=== PATIENT | female | born 1960 | race Caucasian/White ===

== ENCOUNTER 2023-09-08 13:29 | Outpatient (AMB) | payer OTHER, SELFPAY ==
--- NOTE | 2023-09-08 13:38 | A.OFFVIS_ITS ---
Vital Signs 09/08/23 13:47 Height 5 ft 6.5 in Weight 179 lb BMI 28.5 Intake Visit Reasons: RAT EXTERMINATOR-Jose Chronic Hand Pain Intake Note: Verónica is a 63 yo right hand dominant female who presents today with her as a new patient for evaluation of bilateral hand pain that began approximately 3 years ago. Reports numbness, burning, and tingling that comes and goes. There is also locking on fingers 3rd, 4th, and 5th digits. She reports bumpy thinggies on multiple fingers that have grown in size and have become painful. Denies prior surgery or injuries to the hands. No EMG. Patient has a bad experience with EMG's (back). Patient is taking Tylenol for pain with no relief. Patient has not done OT/PT. Patient states she has tried braces with no relief of symptoms. Accompanied by: Spouse Allergies oxycodone Adverse Reaction (Unknown, Verified 09/08/23 13:43) Vomiting Iywiewd-EAT-JrW Reductase Inhibitor Adverse Reaction (Unknown, Verified 09/08/23 13:43) Muscle Pain metformin Adverse Reaction (Verified 09/08/23 13:43) Diarrhea HPI HPI RAT EXTERMINATOR-Jose Chronic Hand Pain: Details: Patient is a 63-year-old female with past medical history is significant for spinal stenosis who presents for evaluation of bilateral burning hand pain, ongoing for approximately 2-3 years. The patient reports that she feels that this pain began with chiropractic adjustment at approximately that time. She reports that she has been to several doctors in order to get this problem looked at, and she finally was able to get referrals to both the hand surgeon and to a radiation control specialist for evaluation. Patient reports she has never had any numbness and tingling in her hands. Patient also reports that this pain temporarily improves with massage about the cervical spine. The patient also reports that she has several ?bumps? on the volar aspect of the PIP joints of several bilateral fingers, as well as feeling as if her fingers get stiff in extension occasionally. The patient reports that these bumps on her fingers have gotten larger over the last year or so. Patient has no other acute complaints or concerns at this time. [facility] Social History (Updated 09/08/23 @ 13:47 by JL Espino) Current occupational status: unemployed Current occupation: rt handed Review of Systems Const All systems reviewed & are unremarkable except as noted in HPI and below Physical Exam Vital Signs: BMI result Body Mass Index 28.5 Extrem Other: Patient is alert, oriented, and in no acute distress. Neuro: Median, ulnar, radial nerves motor and sensory intact and sensation is normal to the tips of all digits. Vascular: Cap refill brisk Pain: Patient reports no tenderness to palpation of bilateral hands ROM: Range of motion of bilateral hands full and intact at this time Able to make a closed fist bilaterally Good finger cross bilaterally Skin: No lacerations or abrasions. General: No ecchymosis, erythema, or evidence of infection. Of note, there is a small bump present at the level of the volar MCP joint in the left index finger, right index finger, and right small finger. Nontender to palpation. Negative Tinel's at the wrist bilaterally Psych: Appears grossly normal Affect normal Attitude cooperative Assessment & Plan Assessment & Plan (1) Bilateral hand pain: Code(s): M79.641 - Pain in right hand; M79.642 - Pain in left hand Category: Medical (2) Ganglion cyst of both hands: Code(s): M67.441 - Ganglion, right hand; M67.442 - Ganglion, left hand Category: Medical Plan 1. Bilateral hand pain At this time, due to lack of numbness and tingling, bilateral nature of symptoms, history of spinal stenosis, and relief with cervical spine massage, I suspect that this bilateral symmetric burning hand pain is likely cervicogenic in origin Patient is advised to keep her appointment with her radiation control specialist, and should discuss this pain with him at this time Index of suspicion for carpal tunnel syndrome or cubital tunnel syndrome extremely low due to lack of numbness and tingling in the hand 2. Ganglion cysts of the left index finger, right index finger, right small finger Patient is informed that these masses or most likely ganglion cysts based on position and physical exam findings Patient is offered aspiration of most bothersome cyst at this time, but declines due to fear of exacerbation of pain Patient is informed of the procedure and what would go on, but still continues to decline Patient will follow-up with us if she does desire to seek treatment for these cysts at another time Patient is also offered occupational hand therapy to help with hand stiffness, but also declines and states she will work on range of motion at home Patient will follow-up p.r.n. with any acute concerns Coding Level of Care Code New Pt Level 3 (62711) Diagnoses Bilateral hand pain M79.641; M79.642 Ganglion cyst of both hands M67.441; M67.442
[2023-09-08 13:47] VITALS: BMI 28.5
== END 2023-09-08 14:21 | disposition home or self-care (01) ==
DX: M79.641 Pain in right hand (principal); M79.642 Pain in left hand; M67.441 Ganglion, right hand; M67.442 Ganglion, left hand
CPT/HCPCS: 99203

== ENCOUNTER 2024-03-18 09:45 | Outpatient (AMB) | payer OTHER, SELFPAY ==
--- NOTE | 2024-03-18 09:46 | A.SPINEOV_ITS ---
Vital Signs 03/18/24 09:57 Height 5 ft 6 in Weight 182 lb BMI 29.4 Intake Visit Reasons: Neck pain Intake Note: Mrs. Yeager is here today c/o neck pain that radiates down her arms. Laboratory Apparatus Glass Blower Required: No Allergies oxycodone Adverse Reaction (Unknown, Verified 09/08/23 13:43) Vomiting Tkjflzh-KHE-NjE Reductase Inhibitor Adverse Reaction (Unknown, Verified 03/18/24 09:57) Muscle Pain metformin Adverse Reaction (Verified 03/18/24 09:57) Diarrhea Physical Exam Vital Signs: BMI result Body Mass Index 29.4 Assessment & Plan Assessment & Plan (1) Bilateral hand pain: Code(s): M79.641 - Pain in right hand; M79.642 - Pain in left hand Category: Medical (2) Numbness of feet: Code(s): R20.0 - Anesthesia of skin Category: Medical Plan Dear Anatoly, Thank you for referring Mrs Yeager to our office today. She is a very nice 63-year-old diabetic, presents to the office today for evaluation of a multiyear history of 2 separate issues. The 1st issue is a burning pain in her hands that encompasses her whole hand bilaterally. Occasionally she will have numbness but the real symptom that presents here is burning pain in her hands at all times. There may be an associated weakness but no loss of fine motor movements, dexterity, graphesthesia etc.. She reports some gait imbalance primarily due to issues with her eyes having lack of visual acuity. No specific loss of balance. She was diagnosed with polyneuropathy years ago. More recently however, she was diagnosed with cervical stenosis at C6-7 and is here today for evaluation of that. She denies any pain or numbness radiating down her arms. Again no overt myelopathic symptoms. Second issue is that she has had chronic back pain for years which generally she has dealt with using physical therapy another nonsurgical measures. She has had a multiyear history of numbness from about her mid calf down to her whole foot. Denies any radiating pains down her legs, claudicating leg symptoms etc.. She was diagnosed with lumbar stenosis at L4-5 recently on an MRI as well and she would like to talk about that. PMH: She is a rather complicated medical history, she has for many years had trouble with her eyes that have been elusive to diagnosis. 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 Unfortunately these things have left her with disturbed vision and a feeling of a greenish over her right eye. More recently she lost complete vision in her left eye rather abruptly. It is very slowly coming back. She has a history of atrial fibrillation, on Eliquis she has a pacemaker. She had a heart attack about 5 years ago had 2 stents placed in the LAD, is followed by yearly. She has been stable from that standpoint without symptoms. She has a history of diabetes in her A1c has always been very well controlled generally less than 7 over the course of many years. Recently had issues with her feet where she has had fractures of her left foot with 2 subsequent repairs, the 2nd 1 was due to loosening of 1 of the screws. The injury to the right ankle was a tear of the Achilles and the peroneus muscle. Denies any issues with her lungs, liver, kidneys, blood clots, major abdominal surgeries. She did have a cholecystectomy in 2 C sections however. Social hx: She quit smoking many years ago, does not drink or smoke marijuana use any recreational drugs Medications: Baby aspirin, Eliquis, Jardiance, spironolactone, torsemide, Lantus, Trulicity, fish oil, brimonidine, dorzolamide, vitamin-D, oxycodone, methocarbamol Allergies: Statins metformin Physical exam: Awake alert oriented no acute distress she is able stand up on her own and walk however she is in a walking boot so she is little unsteady. Her vision is not great so she does have to use the hurst for guidance. She is not overtly unstable with Romberg testing. She is able to get up on the examining table on her own. She has mild loss of strength in the hands, otherwise rest of her motor examination is normal full strength. Reflexes diffusely absent no clonus in her right ankle. Could not test the left ankle secondary to the boot. No Levine's. Tinel's negative. Imaging review: Cervical MRI, thoracic and lumbar done at [facility] in January of 2024. The cervical spine shows degenerative disc disease at C5-6 and C6-7 with moderate to severe stenosis at C6-7. There is no cord signal change seen. Here the thoracic spine shows just some very mild degenerative disc disease with no overt cord compression. Lumbar spine shows some facet hypertrophy at L3-4, she has degenerative disc disease causing severe central canal stenosis. Impression: 63-year-old diabetic female, history of polyneuropathy diagnosed a number of years ago, followed by a neurologist in [facility], presents with symptoms of burning hand pain encompassing the whole hand with some mild hand weakness. No overt myelopathic symptoms reported. Also complains of numbness from about her mid calf down to her whole foot on both feet. These things have been going on for years. She has had an elusive diagnosis for exactly why she has polyneuropathy given that her A1c so well controlled on her diabetes. The symptoms have been getting progressively worse. Her MRIs do show stenosis at C6-7 and L4-5. However, she has none of the classic myelopathic symptoms such as numbness, pain radiating down the arms with gait instability etc.. No loss of fine motor movements. Additionally with the stenosis in her low back, she has no claudicating leg pains to report. Her symptoms are present at rest and do not necessarily get worse when she walks. They are present all the time. It is well-known that these findings on the MRI can be seen in patients who have no symptoms and can be incidental. I will have to review this with Dr. Walter to see if he has any other thoughts on the matter. I am going to repeat the EMG of her upper extremities to see if there has been any progression of her polyneuropathy. Also, I will do the same on the right lower extremity to see if there has been progression there as well. If there has been significant worsening of the polyneuropathy then I think we can explain her symptoms based on that. If not, maybe we can point back to the findings on the MRIs with a little more confidence. I would like to see her back once the EMG is a completed and can review everything with Dr. Walter. Thank you for allowing us to care for your patient. The total time spent with this visit with this patient was 60 minutes reviewing history, physical exam, cervical, thoracic and lumbar imaging review, and implementation of treatment plan or further diagnostic testing Milind Walter MD,PhD [facility] Orders: Orders NE electromyogram (EMG) Today M79.641 - Pain in right hand, M79.642 - Pain in left hand NE electromyogram (EMG) Today R20.0 - Anesthesia of skin Coding Level of Care Code New Pt Level 5 (23087) Diagnoses Bilateral hand pain M79.641; M79.642 Numbness of feet R20.0
[2024-03-18 09:57] VITALS: BMI 29.4
--- OUTSIDE RECORDS SUMMARY | 2024-03-18 10:29 | XMS_ITS | Encounter Summary ---
Author Organization [facility] Address [address] [place] [address] Care Team Providers Care Jewelry Cutter Name Role Phone Santhosh Merrill DO Primary Care Provider [phone] Reason for Visit * Reason Onset Date Comments Med Refill 03/08/2024 Torsemide Encounter Details Date Type Department Care Team ([facility] Contact Info) Description 03/08/2024 Telephone [facility] [address] [place] [address] Heladio Kruger MD [address] [place] [address] [address]IVE [address] [place], [place] [id number] Med Refill (Torsemide) Social History Tobacco Use Types Packs/Day Years Used Date Smoking Tobacco: Former Cigarettes Q uit: 02/06/2017 Smokeless Tobacco: Never Alcohol Use Standard Drinks/Week Comments Yes 0 (1 standard drink = 0.6 oz pur e alcohol) Comments Unknown Sex and Gender Information Value Date Recorded Sex Assigned at Not on file Legal Sex Female 12:00 AM EST Gender Identity Not on file Sexual Orientation Not on file documented as of this encounter Ordered Prescriptions Prescription Sig Dispense Quantity Refills Last Filled Start Date End Date torsemide (DEMADEX) 20 mg tablet Take 2 tablets (40 mg total) by mouth 1 (one) time each day. 180 tablet 2 03/08/2024 documented in this encounter Progress Notes * Tracy Mckeon RN - 03/08/2024 12:21 PM EST [facility] 09/26/23 Labs 08/23/23 in [facility] Torsemide refills sent * Kari Contreras - 03/08/2024 12:05 PM EST Patient needs a refill for Torsemide 20 mg 2 tabs daily. Send to [facility] in [place] for 90 day supply. documented in this encounter Plan of Treatment Upcoming Encounters Date Type Department Care Team (Late st Contact Info) Description 03/28/2024 8:00 AM EST Ancillary Procedure [facility] - [facility] [address] [facility] [place] [address] [place] [phone] documented as of this encounter Visit Diagnoses Not on filedocumented in this encounter Discontinued Medications Medication Sig Discontinue Reason Start Date End Da te torsemide (DEMADEX) 20 mg tablet Take 2 Tablets by mouth daily. Reorder 03/29/2023 03/08/2024 documented as of this encounter Care Teams Jewelry Cutter Relationship Specialty Start Date End Date Santhosh Merrill DO [address] [place] [phone] PCP - General Internal Medicine 02/18/20 documented as of this encounter
--- OUTSIDE RECORDS SUMMARY | 2024-03-18 10:29 | XMS_ITS ---
Author Organization [facility] Address [address] [address] Care Team Providers Care Fish Farm Laborer Name Role Phone Santhosh Merrill DO Primary Care Provider MATTEO Herr [phone] REASON FOR VISIT PT Referral Encounters Encounter Location Date Provider Diagnosis [facility] [address] [address] 02/23/2024 MATTEO MALDONADO Plan Of Treatment Next Appt Details Provider Name:MATTEO MALDONADO, 04/24/2024 03:30:00 PM, [address] [address], [place], [phone], Progress Notes * SHOBHAMartin HaywoodOB:[birth year] (63 yo F)Acc No.[id number]:02/23/2024 Patient:?Verónica YEAGER :1960???Age:63 Y???Sex:Female Address:[address] [place] [address] [place] [address] * true * Date:? Generated for Printi cecilia/Laine/eTransmitting on:?03/18/2024 10:29 AM EST
--- OUTSIDE RECORDS SUMMARY | 2024-03-18 10:29 | XMS_ITS | Encounter Summary ---
Author Organization [facility] Address [address] [place] [address] Care Team Providers Care Director Of Income Tax Name Role Phone Santhosh Merrill DO Primary Care Provider [phone] Encounter Details Date Type Department Care Team (Late st Contact Info) Description 03/13/2024 12:15 AM EST Ancillary Procedure [facility] [address] [place] [phone] Social History Tobacco Use Types Packs/Day Years [...] on file documented as of this encounter Plan of Treatment Upcoming Encounters Date Type Department Care Team (Late st Contact Info) Description 03/28/2024 8:00 AM EST Ancillary Procedure [facility] [address] [place] [phone] documented as of this encounter Procedures Procedure Name Priority Date/Time Associated Diagnosis Comments CARDIAC DEVICE CHECK- REMOTE- MURJ Routine 03/13/2024 12:11 AM EST documented in this encounter Results * Cardiac device check - Remote- MURJ (03/13/2024 12:11 AM EST) Date Time Interrogation Session [id number] CV DEVICE CHECK Type Interrogation Session Remote CV DEVICE CHECK Implantable Pulse Generator Strategic Intelligence Officer MDT CV DEVICE CHECK Implantable Pulse Generator Type REEL STRIPPER-P CV DEVICE CHECK Implantable Pulse Generator Model Shirley Quad REEL STRIPPER-P [id number] CV DEVICE CHECK Implantable Pulse Generator Serial Number [id number] CV DEVICE CHECK Implantable Pulse Generator Implant Date 20200210 CV DEVICE CHECK Battery Remaining Longevity 115.0 CV DEVICE CHECK Battery Voltage 3.000 CV D EVICE CHECK Battery MANAGER PRIVACY Trigger 2.595 CV DEVICE CHECK Battery Status Middle of Service CV DEVICE CHECK Sergio Statistic RA Percent Paced 0.04 CV DEVICE CHECK Sergio Statistic RV Percent Paced 0.06 CV DEVICE CHECK REEL STRIPPER Statistic LV Percent Paced 98.08 CV DEVICE CHECK REEL STRIPPER Statistic REEL STRIPPER Percent Paced 0.03 CV DEVICE CHECK Atrial Tachy Statistic AT/AF [place] Percent 0.00 CV DEVICE CHECK Lead Channel Sensing Intrinsic Amplitude 0.125 CV DEVICE CHECK Lead Channel Setting Sensing Sensitivity 0.15 CV DEVICE CHECK Lead Channel Impedance Value 380 CV DEVICE CHECK Lead Channel Pacing Threshold Amplitude 1.000 CV DEVICE CHECK Lead Channel Pacing Threshold Pulse Width 0.4 CV DEVICE CHECK Lead Channel RA Pacing Threshold Date 2024-03-08 CV DEVICE CHECK Lead Channel Setting Pacing Amplitude 2.000 CV DEVICE CHECK Lead Channel Setting Pacing Pulse Width 0.4 CV DEVICE CHECK Lead Channel Sensing Intrinsic Amplitude 11.875 CV DEVICE CHECK Lead Channel Setting Sensing Sensitivity 0.90 CV DEVICE CHECK Lead Channel Impedance Value 475 CV DEVICE CHECK Lead Channel Pacing Threshold Amplitude 0.750 CV DEVICE CHECK Lead Channel Pacing Threshold Pulse Width 0.4 CV DEVICE CHECK Lead Channel RV Pacing Threshold Date 2024-03-08 CV DEVICE CHECK Lead Channel Setting Pacing Amplitude 2.000 CV DEVICE CHECK Lead Channel Setting Pacing Pulse Width 0.4 CV DEVICE CHECK Lead Channel Impedance Value 874 CV DEVICE CHECK Lead Channel Pacing Threshold Amplitude 1.000 CV DEVICE CHECK Lead Channel Pacing Threshold Pulse Width 0.4 CV DEVICE CHECK Lead Channel Pacing Threshold Date 2024-03-08 CV DEVICE CHECK Lead Channel Setting Pacing Amplitude 1.750 CV DEVICE CHECK Lead Channel Setting Pacing Pulse Width 0.4 CV DEVICE CHECK Sergio Setting Mode (NBG Code) DDD CV DEVICE CHECK Ventricular chambers paced during REEL STRIPPER pacing. LVOnly CV DEVICE CHECK Sergio Setting Lower Rate Limit 50 CV DEVICE CHECK Sergio Setting AT Mode Switch Rate 171 CV DEVICE CHECK Sergio Setting Maximum Tracking Rate 130 CV DEVICE CHECK Sergio Setting Maximum Sensor Rate 130 CV DEVICE CHECK Sergio Setting PAV Delay 150 CV DEVICE CHECK Sergio Setting CRISTIAN Delay 100 CV DEVICE CHECK REEL STRIPPER LV-RV Delay 10 CV D EVICE CHECK Zone Setting Type Category AT/AF CV DEVICE CHECK Rate 171 CV DEVICE CHECK Therapies Some Rx Off CV DEVIC E CHECK Zone Setting Status Monitor CV DEVICE CHECK Zone ID 2 CV DEVICE CHECK Zone Setting Type Category VT CV DEVICE CHECK Rate 150 CV DEVICE CHECK Zone Setting Status ENABLED CV DEVICE CHECK Zone ID 6 CV DEVICE CHECK Date of Service 2024-04-16 CV DEVICE CHECK Anatomical Region Laterality Modality Device Interroga tion 03/08/2024 8:55 PM EST Impressions 03/12/2024 12:58 PM EST Heart Failure Diagnostic: Stable * Heart failure diagnostics assessed through the device * Status: Stable * No overt HF present Narrative Procedure Note Juan Hicks MD - 03/13/2024 IMPRESSION: Heart Failure Diagnostic: Stable * Heart failure diagnostics assessed through the device * Status: Stable * No overt HF present Juan Hicks MD CV IMPLANTABLE CARDIAC DEV ICE PROCEDURES Final Result documented in this encounter Visit Diagnoses Not on filedocumented in this encounter Care Teams Director Of Income Tax Relationship Specialty Start Date End Date Santhosh Merrill DO [address] [place] [phone] PCP - General Internal Medicine 02/18/20 documented as of this encounter
--- OUTSIDE RECORDS SUMMARY | 2024-03-18 10:29 | XMS_ITS | Clinical Summary ---
Author Organization [address] [place] [address] [place] [id number] Phone Care Team Providers Care Decorating Inspector Name Role Phone Santhosh Merrill DO Primary Care Provider [phone] Allergies Active Allergy Reactions Criticality Noted Date Comments Atorvastatin 06/03/2022 Muscle aches Metformin High 10/16/2017 Metoprolol 06/03/2022 Burning hands Oxycodone-Acetaminophen 06/03/2022 nausea Medications apixaban (Eliquis) 5 mg tablet TAKE 1 TABLET BY MOUTH TWICE DAILY 4 Active lifitegrast (Xiidra) 5 % dropperette INSTIL 1 DROP BOTH EYES TWICE DAILY 4 Active traMADoL (ULTRAM) 50 mg tablet Take 1 Tablet by mouth at bedtime. Active hydrOXYzine HCL (ATARAX) 25 mg tablet Take 1 Tablet by mouth at bedtime. Active VITAMIN B COMPLEX ORAL Take 1 Tablet by mouth daily. Active dorzolamide (TRUSOPT) 2 % ophthalmic solution Place 1 Drop into the left eye 2 times daily. Active dulaglutide (Trulicity) 1.5 mg/0.5 mL pen injector injection ADMINISTER 1.5 MG UNDER THE SKIN 1 TIME A WEEK 3 Active fish,bora,flax oils-om3,6,9no1 ([place] 3-6-9) 1,200 mg capsule Take 2 Capsules by mouth daily. Active lidocaine (LIDODERM) 5 % patch Place 1 Patch onto the skin every 24 hours. Apply for no more than 12 hours in any 24 hour period. Active acetaminophen (TYLENOL) 500 mg tablet Take 500 mg by mouth every 6 hours as needed. Active empagliflozin (Jardiance) 25 mg tablet Take 1 tablet by mouth daily. Active spironolactone (ALDACTONE) 25 mg tablet Take 12.5 mg by mouth daily. Active brimonidine (ALPHAGAN) 0.2 % ophthalmic solution Place 1 Drop into the left eye daily. Active aspirin 81 mg EC tablet Take 81 mg by mouth daily. 1 Active multivit-min/iro n/folic acid/K (ADULTS MULTIVITAMIN ORAL) Take 1 Tablet by mouth daily. Active insulin glargine (LANTUS) 100 unit/mL injection Inject 50 Units into the skin at bedtime. Active torsemide (DEMADEX) 20 mg tablet Take 2 tablets (40 mg total) by mouth 1 (one) time each day. 180 tablet 2 5 Active torsemide (DEMADEX) 20 mg tablet Take 2 Tablets by mouth daily. 4 025 Discontin ued(Reord er) Active Problems Problem Noted Date Diagnosed Date Palpitations 10/26/2022 Overview (01/10/2024): Last Assessment & Plan: Patient had a nuclear monitoring technician completed last year for evaluation of palpitations. No concerning findings. Patient denies any recurrent palpitations at this time. PAF (paroxysmal atrial fibrillation) 12/13/2021 Overview (01/10/2024): Last Assessment & Plan: Patient has history of paroxysmal atrial fibrillation and continues on Eliquis for anticoagulation given her elevated [id number] score. Orthostatic hypotension 10/19/2020 Overview (01/10/2024): Last Assessment & Plan: Patient has history of substantial orthostatic hypotension and for this reason advancing medical therapies for her cardiac issues have been difficult. At this time she denies any lightheadedness or dizziness. Type 2 diabetes mellitus with diabetic nephropat hy 04/27/2020 Coronary artery disease 03/13/2020 Overview (01/10/2024): Last Assessment & Plan: Patient is history of coronary artery disease with history of NSTEMI and previous stenting of the LAD. She denies any exertional anginal symptoms. She continues on cardioprotective medical therapy with aspirin. Unfortunately she is intolerant of statin. I have reviewed with the patient the importance of a heart healthy lifestyle which includes eating a low-fat low-salt diet, getting regular exercise, maintaining a healthy weight, not smoking, and following up with routine medical care. Systolic heart failure 03/13/2020 Overview (01/10/2024): Last Assessment & Plan: Patient has history of systolic heart failure with a reduced EF. Last echocardiogram showing an EF of 50%. She has a biventricular pacemaker in place for resynchronization therapy. She feels well and denies any clinical symptoms of heart failure and appears euvolemic on physical examination. Unfortunately due to issues with orthostatic hypotension in the past she is not able to tolerate ERIKA/ARB or Arni. She continues on torsemide, spironolactone and empagliflozin. She is currently not on a beta-francisco. Last remote device interrogation showed normal device functioning with no alerts noted. No changes to her medical therapies today. Patient advised to seek emergency medical attention by calling 911 if they were to develop severe dyspnea, chest pain that did not resolve with rest or nitroglycerin, or if they were to faint. I've asked the patient to call if they develop worsening symptoms of heart failure such as increased shortness of breath, new or worsening cough, increased swelling in the legs or ankles, or weight gain of more than 2 pounds in one day or 4 pounds in one week. Hepatic steatosis 06/12/2018 Breast calcifications 03/30/2018 Overview (01/10/2024): Left - scheduled for follow up imaging in 09/2018 DM (diabetes mellitus), type 2 with renal compli cations 10/02/2017 Hyperlipidemia 10/02/2017 Overview (01/10/2024): Last Assessment & Plan: Patient is intolerant of statin. She continues on fish oil. She has history of hypertriglyceridemia. She is due to update lipids. Microalbuminuria 10/02/2017 Encounters Date Type Department Care Team Description 03/13/2024 12:15 AM EST Ancillary Procedure [facility] - [address] [place] [address] 03/08/2024 Telephone [facility] - [address] [place] [address] Heladio Kruger MD Med Refill (Torsemide) 02/13/2024 12:10 PM EST Ancillary Procedure [facility] - [address] [place] [address] 01/23/2024 10:05 AM EST - 01/23/2024 11:59 PM EST Hospital Encounter [facility] MRI [address] [place] [address] Paresthesia of both hands Discharge Disposition: Home or Self Care 01/23/2024 10:05 AM EST - 01/23/2024 11:59 PM EST Hospital Encounter [facility] [address] [place] [address] Paresthesia of both hands Discharge Disposition: Home or Self Care 01/09/2024 9:20 PM EST Ancillary Procedure [facility] - [address] [place] [address] 01/02/2024 8:09 AM EST - 01/02/2024 11:59 PM EST Hospital Encounter [facility] [address] [place] [address] Neuralgia and neuritis, unspecified Discharge Disposition: Home or Self Care 12/19/2023 9:25 AM EST Ancillary Procedure [facility] - [address] [facility] [address] [place] [address] from Last 3 Months Immunizations Name Administration Dates Next Due Tdap Tetanus diptheria acell ular pertussis (Boostrix; Adacel) 7yo and older 06/01/2018 Surgical History Surgery Date Site/Laterality Comments OTHER SURGICAL HISTORY PROCEDURE: ABSCESS, SOFT TISSUE DEBRIDEMENT; COMMENT: perineal TONSILLECTOMY PROCEDURE: HISTORICAL TONSILLECTOMY; COMMENT: age 20 CHOLECYSTECTOMY PROCEDURE: HISTORICAL CHOLECYSTECTOMY; COMMENT: early 20s OTHER SURGICAL HISTORY PROCEDURE: [place] ARTHROSCOPY TEMPOROMANDIBULAR JOINT SURGICAL; COMMENT: bone removal, reported for treatment of tmj; in early 20s OTHER SURGICAL HISTORY Left PROCEDURE: [place] EXC PRTD HETAL/PRTD GLND LAT LOBE W/O NRV DSJ; COMMENT: stone removal SECTION PROCEDURE: HISTORICAL DELIVERY; COMMENT: x 2 Medical History Medical History Date Comments Type 2 diabetes mellitus wit h diabetic retinopathy (CMS/HCC) 10/16/2017 DX:Type 2 diabetes mellitus with diabetic retinopathy (HCC) Hypertriglyceridemia 10/02/2017 DX:Hypertri glyceridemia Microalbuminuria 10/02/2017 DX:Microalbumin uria Type 2 diabetes mellitus wit h retinopathy (CMS/HCC) 2018 DX:Type 2 diabetes mellitus with retinopathy (HCC) Breast calcifications 03/30/2018 DX:Breast calcifications; COMMENT: Left - scheduled for follow up imaging in 09/2018 Colonoscopy refused 07/06/2018 DX:Colonosco py refused Lumbar radiculopathy DX:Lumbar r adiculopathy Macular retinal edema DX:Macular retinal edema Social History Tobacco Use Types Packs/Day Years [...] on file Sexual Orientation Not on file Obstetrics History Last Filed Vital Signs Vital Sign Reading Time Taken Comments Blood Pressure 132/70 09/26/2023 8:04 AM EDT Sit ting R Arm Pulse 74 09/26/2023 8:04 AM EDT Temperature - - Respiratory Rate - - Oxygen Saturation - - Inhaled Oxygen Concentration - - Weight 79.8 kg (176 lb) 09/26/2023 8:04 AM EDT Height 168.9 cm (5' 6.5 ) 09/26/2023 8:04 AM EDT Body Mass Index 27.98 09/26/2023 8:04 AM EDT Plan of Treatment Upcoming Encounters Date Type Department Care Team (Late st Contact Info) Description 03/28/2024 8:00 AM EST Ancillary Procedure [facility] - [address] [place] [address] Health Maintenance Due Date Last Done Comments Diabetes: Annual Foot Exam 1972 Diabetes: Annual Retina Eye Exam 1972 Pneumococcal Vaccine: 50+ Years (1 of 2 - PCV) 1981 Pneumococcal Vaccine: Pediatrics (0 to 5 Years) and At-Risk Patients (6 to 64 Years) (1 of 2 - PCV) 1981 Zoster Vaccines (1 of 2) 2012 DTaP,Tdap,and Td Vaccines (2 - Td or Tdap) 06/29/2018 06/01/2018 Cervical Cancer Screening: Pap Smear 03/09/2021 03/09/2018, 03/09/2018, 03/09/2018 Breast Cancer Screening 04/07/2021 04/08/19 20, 10/01/2018, 03/29/2018, Additional history exists Depression Screening 01/15/2022 HIV Screening 01/15/2022 Social Influencers of Health Screening 01/15/2022 Diabetes: Annual Urine Albumin-Creatinine Ratio (uACR) 01/22/2022 03/23/2018 RSV Immunization Patients 60+ Years Old (1 - Risk 60-74 years 1-dose series) 2022 Diabetes: Blood Sugar Control Test (HGBA1C) 09/06/2022 03/09/2022, 03/22/2019 Cholesterol Screening (Lipid Panel) 09/21/2022 09/21/2017 Diabetes: Annual GFR (Glomerular Filtration Rate) 03/09/2023 03/09/2022, 07/05/2018 Hypertension/CHF/CAD Annual BMP Blood Test 03/09/2023 03/09/2022, 07/05/2018 COVID-19 Vaccine ( season) 2023 Influenza Vaccine (#1) 2023 Colorectal Cancer Screening: Colonoscopy 07/06/2028 07/06/2018 Hepatitis C Screening Completed 09/21/2017 HIB Vaccines Aged Out No longer eligi ble based on patient's age to complete this topic HPV Vaccines Aged Out No longer eligi ble based on patient's age to complete this topic Hepatitis A Vaccines Aged Out No long er eligible based on patient's age to complete this topic Hepatitis B Vaccines Aged Out No long er eligible based on patient's age to complete this topic IPV Vaccines Aged Out No longer eligi ble based on patient's age to complete this topic MMR Vaccines Aged Out No longer eligi ble based on patient's age to complete this topic Meningococcal ACWY Vaccine Aged Out N o longer eligible based on patient's age to complete this topic Meningococcal B Vacine Aged Out No lo nger eligible based on patient's age to complete this topic RSV Immunization Patients Under 20 months Aged Out No longer eligible based on patient's age to complete this topic Varicella Vaccines Aged Out No longer eligible based on patient's age to complete this topic Medical Devices Implanted Type Area Restaurant Host/Hostess Device Identifier Shelf Expiration Date Model / Serial / Lot Medt-Card Shirley Quad Contract Mail Carrier-P [id number] Implanted:05/2020 (Quantity not on file) Cardiac TRUCK RENTAL MANAGER-P [employer] - CARDIAC RHYTH-CRDM SHIRLEY QUAD TRUCK RENTAL MANAGER-P [id number] / [id number] / Procedures Procedure Name Priority Date/Time Associated Diagnosis Comments CARDIAC DEVICE CHECK- REMOTE- MURJ Routine 03/13/2024 12:11 AM EST CARDIAC DEVICE CHECK- REMOTE- MURJ Routine 02/13/2024 12:07 PM EST MR THORACIC SPINE WO CONTRAST Routine 01/23/2024 11:53 AM EST Paresthesia of both hands MR CERVICAL SPINE WO CONTRAST Routine 01/23/2024 11:53 AM EST Paresthesia of both hands CARDIAC DEVICE CHECK- REMOTE- MURJ Routine 01/09/2024 9:16 PM EST MR LUMBAR SPINE WO CONTRAST Routine 01/02/2024 9:10 AM EST Neuralgia and neuritis, unspecified CARDIAC DEVICE CHECK- REMOTE- MURJ Routine 12/19/2023 9:21 AM EST DX MAMMO INCL CAD BI Routine 04/08/2019 9:33 AM EST Encounter for screening mammogram for malignant neoplasm of breast HEMOGLOBIN A1C Routine 03/22/2019 HM COLONOSCOPY Routine 07/06/2018 ANNUAL BMP BLOOD TEST Routine 07/05/2018 HM URINE ALBUMIN CREATININE RATIO Routine 03/23/2018 PAP SMEAR Routine 03/09/2018 HM HEPATITIS C SCREENING Routine 09/21/2017 LIPID PANEL Routine 09/21/2017 from Last 3 Months or Most Recently Relevant to Health Maintenance Results * Cardiac device check - Remote- MURJ (03/13/2024 12:11 AM EST) Only the most recent of4 resultswithin the time period is included. Date Time Interrogation Session [id number] CV DEVICE CHECK Type Interrogation Session Remote CV DEVICE CHECK Implantable Pulse Generator Restaurant Host/Hostess MDT CV DEVICE CHECK Implantable Pulse Generator Type TRUCK RENTAL MANAGER-P CV DEVICE CHECK Implantable Pulse Generator Model Shirley Quad TRUCK RENTAL MANAGER-P [id number] CV DEVICE CHECK Implantable Pulse Generator Serial Number [id number] CV DEVICE CHECK Implantable Pulse Generator Implant Date 20200210 CV DEVICE CHECK Battery Remaining Longevity 115.0 CV DEVICE CHECK Battery Voltage 3.000 CV D EVICE CHECK Battery SENIOR COMPENSATION CONSULTANT Trigger 2.595 CV DEVICE CHECK Battery Status Middle of Service CV DEVICE CHECK Sergio Statistic RA Percent Paced 0.04 CV DEVICE CHECK Sergio Statistic RV Percent Paced 0.06 CV DEVICE CHECK TRUCK RENTAL MANAGER Statistic LV Percent Paced 98.08 CV DEVICE CHECK TRUCK RENTAL MANAGER Statistic TRUCK RENTAL MANAGER Percent Paced 0.03 CV DEVICE CHECK Atrial Tachy Statistic AT/AF Dudley Percent 0.00 CV DEVICE CHECK Lead Channel [...] CV DEVICE CHECK Ventricular chambers paced during TRUCK RENTAL MANAGER pacing. LVOnly CV DEVICE CHECK Sergio Setting Lower Rate Limit 50 CV DEVICE CHECK Sergio Setting AT Mode Switch Rate 171 CV DEVICE CHECK Sergio Setting Maximum Tracking Rate 130 CV DEVICE CHECK Sergio Setting Maximum Sensor Rate 130 CV DEVICE CHECK Sergio Setting PAV Delay 150 CV DEVICE CHECK Sergio Setting CRISTIAN Delay 100 CV DEVICE CHECK TRUCK RENTAL MANAGER LV-RV Delay 10 CV D EVICE CHECK [...] Status: Stable * No overt HF present us Juan Hicks MD CV IMPLANTABLE CARDIAC DEV ICE PROCEDURES Final Result * MR Thoracic Spine wo Contrast (01/23/2024 11:53 AM EST) Anatomical Region Laterality Modality T-spine, Spine Magnetic Resonan ce 01/24/2024 9:17 AM EST Impressions 01/24/2024 9:20 AM EST Mild degenerative changes are noted and are detailed above. -------- FINAL REPORT -------- Dictated By: Michele Botello Dictated Date: 01/24/2024 09:17 ET Assigned Physician: Michele Botello Reviewed and Electronically Signed By: Michele Botello Signed Date: 01/24/2024 09:20 ET Workstation ID: [id number] Transcribed By: Self Edit Transcribed Date: 01/24/2024 09:17 ET Narrative 01/24/2024 9:20 AM EST MRI thoracic spine without contrast. TECHNIQUE: Multiple MRI sequences were performed of the thoracic spine without contrast HISTORY: Neck and shoulder pain COMPARISON: None. ??MRI cervical spine performed same day. FINDINGS: Bones: Normal marrow signal is noted. ??No visible fracture or deformity. ??Alignment is maintained. Cord: Thoracic cord appears within normal limits. ??Normal signal is noted. Disc: Mild degenerative disc changes are noted throughout. ??Only regions of mild spinal canal stenosis are noted. Facets: Mild degenerative changes of the facets are noted. ??Only minimal foraminal stenosis is identified. Procedure Note Michele Botello MD - 01/24/2024 MRI thoracic spine without contrast. TECHNIQUE: Multiple MRI sequences were performed of the thoracic spinewithout contrast HISTORY: Neck and shoulder pain COMPARISON: None. MRI cervical spine performed same day. FINDINGS: Bones: Normal marrow signal is noted. No visible fracture or deformity.Alignment is maintained. Cord: Thoracic cord appears within normal limits. Normal signal isnoted. Disc: Mild degenerative disc changes are noted throughout. Only regionsof mild spinal canal stenosis are noted. Facets: Mild degenerative changes of the facets are noted. Only minimalforaminal stenosis is identified. IMPRESSION: Mild degenerative changes are noted and are detailed above. -------- FINAL REPORT -------- Dictated By: Michele Botello Dictated Date: 01/24/2024 09:17 ET Assigned Physician: Michele Botello Reviewed and Electronically Signed By: Michele Botello Signed Date: 01/24/2024 09:20 ET Workstation ID: [id number] Transcribed By: Self Edit Transcribed Date: 01/24/2024 09:17 ET Santhosh Merrill DO IMG MRI PROCEDURES Final Resu lt * MR Cervical Spine wo Contrast (01/23/2024 11:53 AM EST) Anatomical Region Laterality Modality C-spine, Spine Magnetic Resonan ce 01/24/2024 9:00 AM EST Impressions 01/24/2024 9:10 AM EST Multilevel degenerative changes are noted and detailed fully above. -------- FINAL REPORT -------- Dictated By: Michele Botello Dictated Date: 01/24/2024 09:00 ET Assigned Physician: Michele Botello Reviewed and Electronically Signed By: Michele Botello Signed Date: 01/24/2024 09:10 ET Workstation ID: [id number] Transcribed By: Self Edit Transcribed Date: 01/24/2024 09:00 ET Narrative 01/24/2024 9:10 AM EST MRI of the cervical spine without contrast INDICATION: Neck shoulder pain and stiffness. COMPARISON: None TECHNIQUE: Multiple MRI sequences were performed of the cervical spine without contrast. FINDINGS: Bones: Bones appear normal. ??No fracture or deformity. ??No irregular edema. Alignment: Appears normal. Spinal cord: Cord appears normal in signal. Soft tissues: Soft tissues appear normal. Cervical Spine Levels C2-C3: Normal without evidence of significant stenosis. C3-C4: Degenerative disc osteophyte with moderate spinal canal stenosis. ??Degenerative changes contribute to moderate bilateral foraminal stenosis. C4-C5: Degenerative disc osteophyte with moderate spinal canal stenosis. ??Degenerative changes contribute to severe right-sided and moderate left-sided foraminal stenosis. C5-C6: Degenerative disc osteophyte with moderate spinal canal stenosis. ??Contact on the cervical cord without irregular cord signal. ??Degenerative changes contribute to moderate bilateral foraminal stenosis. C6-C7: Degenerative disc osteophyte with severe spinal canal stenosis. ??Contact on the cervical cord without irregular cord signal. ??Degenerative changes cause moderate bilateral foraminal stenosis. C7-T1: Normal without evidence of significant stenosis. Procedure Note Michele Botello MD - 01/24/2024 MRI of the cervical spine without contrast INDICATION: Neck shoulder pain and stiffness. COMPARISON: None TECHNIQUE: Multiple MRI sequences were performed of the cervical spinewithout contrast. FINDINGS: Bones: Bones appear normal. No fracture or deformity. No irregularedema. Alignment: Appears normal. Spinal cord: Cord appears normal in signal. Soft tissues: Soft tissues appear normal. Cervical Spine Levels C2-C3: Normal without evidence of significant stenosis. C3-C4: Degenerative disc osteophyte with moderate spinal canal stenosis.Degenerative changes contribute to moderate bilateral foraminalstenosis. C4-C5: Degenerative disc osteophyte with moderate spinal canal stenosis.Degenerative changes contribute to severe right-sided and moderateleft-sided foraminal stenosis. C5-C6: Degenerative disc osteophyte with moderate spinal canal stenosis.Contact on the cervical cord without irregular cord signal. Degenerativechanges contribute to moderate bilateral foraminal stenosis. C6-C7: Degenerative disc osteophyte with severe spinal canal stenosis.Contact on the cervical cord without irregular cord signal. Degenerativechanges cause moderate bilateral foraminal stenosis. C7-T1: Normal without evidence of significant stenosis. IMPRESSION: Multilevel degenerative changes are noted and detailed fully above. -------- FINAL REPORT -------- Dictated By: Michele Botello Dictated Date: 01/24/2024 09:00 ET Assigned Physician: Michele Botello Reviewed and Electronically Signed By: Michele Botello Signed Date: 01/24/2024 09:10 ET Workstation ID: [id number] Transcribed By: Self Edit Transcribed Date: 01/24/2024 09:00 ET us Santhosh Merrill DO [facility] MRI PROCEDURES Final Resu lt * MR Lumbar Spine wo Contrast (01/02/2024 9:10 AM EST) Anatomical Region Laterality Modality L-spine, Spine Magnetic Resonan ce 01/02/2024 2:56 PM EST Impressions 01/02/2024 3:22 PM EST Multilevel degenerative changes most pronounced at L4-5 where there is severe spinal canal stenosis and moderate foraminal stenosis bilaterally. -------- FINAL REPORT -------- Dictated By: ARTURO MARTINEZ Dictated Date: 01/02/2024 14:56 ET Assigned Physician: ARTURO MARTINEZ Reviewed and Electronically Signed By: ARTURO MARTINEZ Signed Date: 01/02/2024 15:22 ET Workstation ID: [id number] Transcribed By: Self Edit Transcribed Date: 01/02/2024 14:56 ET Narrative 01/02/2024 3:22 PM EST PROCEDURE: Lumbar spine MRI INDICATION: Chronic neuropathy, pain TECHNIQUE: Multiplanar, multisequence MRI of the Lumbar spine Without contrast. COMPARISON: ??No priors available. FINDINGS: Mild anterolisthesis at L4-5 related to advanced facet arthritis. No fracture or suspicious marrow replacing lesion. Multilevel degenerative loss of normal disc height and signal with associated degenerative endplate spurring. Lower lumbar predominant facet arthropathy, most pronounced at L3-4 and L4-5. Conus medullaris is normal and terminates at T12-L1. ??No epidural collection or mass is seen within the spinal canal. Paraspinal muscles are normal. ??Visualized intra-abdominal and pelvic structures are normal. Findings by level: T12-L1: No focal disc protrusion, foraminal stenosis, or spinal canal stenosis. L1-2: No focal disc protrusion, foraminal stenosis, or spinal canal stenosis. L2-3: Diffuse disc bulge. ??No foraminal or spinal canal stenosis. L3-4: Bilateral facet arthropathy with ligamentum flavum thickening. ??Diffuse disc bulge. ??Mild foraminal stenosis bilaterally. ??Mild spinal canal stenosis. L4-5: Bilateral facet arthropathy with ligamentum flavum thickening. ??Anteromedially projecting left facet synovial cyst measures 4 mm and contributes to effacement of the left subarticular zone. ??Severe spinal canal stenosis. ??Moderate foraminal stenosis bilaterally. L5-S1: Diffuse disc bulge, eccentric to left. ??Bilateral facet arthropathy. ??Moderate left greater than right foraminal stenosis. ??No spinal canal stenosis. Procedure Note Arturo Martinez MD - 01/02/2024 PROCEDURE: Lumbar spine MRI INDICATION: Chronic neuropathy, pain TECHNIQUE: Multiplanar, multisequence MRI of the Lumbar spine Withoutcontrast. COMPARISON: No priors available. FINDINGS: Mild anterolisthesis at L4-5 related to advanced facet arthritis. No fracture or suspicious marrow replacing lesion. Multilevel degenerative loss of normal disc height and signal withassociated degenerative endplate spurring. Lower lumbar predominant facet arthropathy, most pronounced at L3-4 andL4-5. Conus medullaris is normal and terminates at T12-L1. No epiduralcollection or mass is seen within the spinal canal. Paraspinal muscles are normal. Visualized intra-abdominal and pelvicstructures are normal. Findings by level: T12-L1: No focal disc protrusion, foraminal stenosis, or spinal canalstenosis. L1-2: No focal disc protrusion, foraminal stenosis, or spinal canalstenosis. L2-3: Diffuse disc bulge. No foraminal or spinal canal stenosis. L3-4: Bilateral facet arthropathy with ligamentum flavum thickening.Diffuse disc bulge. Mild foraminal stenosis bilaterally. Mild spinalcanal stenosis. L4-5: Bilateral facet arthropathy with ligamentum flavum thickening.Anteromedially projecting left facet synovial cyst measures 4 mm andcontributes to effacement of the left subarticular zone. Severe spinalcanal stenosis. Moderate foraminal stenosis bilaterally. L5-S1: Diffuse disc bulge, eccentric to left. Bilateral facetarthropathy. Moderate left greater than right foraminal stenosis. Nospinal canal stenosis. IMPRESSION: Multilevel degenerative changes most pronounced at L4-5 where there issevere spinal canal stenosis and moderate foraminal stenosisbilaterally. -------- FINAL REPORT -------- Dictated By: ARTURO MARTINEZ Dictated Date: 01/02/2024 14:56 ET Assigned Physician: ARTURO MARTINEZ Reviewed and Electronically Signed By: ARTURO MARTINEZ Signed Date: 01/02/2024 15:22 ET Workstation ID: [id number] Transcribed By: Self Edit Transcribed Date: 01/02/2024 14:56 ET us Santhosh Merrill DO IMG MRI PROCEDURES Final Resu lt * DX MAMMO INCL CAD BI (04/08/2019 9:33 AM EST) Anatomical Region Laterality Modality Mammography 03/29/2018 3:49 PM EST Narrative 04/08/2019 9:38 AM EST This is a summary report. The complete report is available in the patient's medical record. If you cannot access the medical record, please contact the sending organization for a detailed fax or copy. Exam: Diagnostic mammogram History: 6-month follow-up left breast calcifications Findings: Digital bilateral full-field diagnostic mammography is performed and interpreted with the aid of computer-aided detection. ??Comparison is made with 10/01/2018 and as far back as 03/26/2018. ??Magnification views of the left breast calcifications performed in addition to routine views. Breast parenchyma is heterogeneously dense, limiting mammographic sensitivity. ??No significant change in loosely grouped calcifications in the upper outer left breast, some of which have benign milk of calcium appearance. No new suspicious mass, architectural distortion, or suspicious calcifications. Impression: Stable probably benign left breast calcifications. ??Recommend follow-up in 12 months with magnification views to bring follow-up over a 2-year interval. ??No new mammographic evidence of malignancy in either breast. BI-RADS 3-probably benign 5 year breast cancer risk assessment 1.9 % Lifetime breast cancer risk assessment 11.9 % Breast cancer risk category Low (<15%) Procedure Note Inan Eagle MD - 01/25/2022 This is a summary report. The complete report is available in thepatient's medical record. If you cannot access the medical record, pleasecontact the sending organization for a detailed fax or copy. Exam: Diagnostic mammogram History: 6-month follow-up left breast calcifications Findings: Digital bilateral full-field diagnostic mammography is performedand interpreted with the aid of computer-aided detection. Comparison ismade with 10/01/2018 and as far back as 03/26/2018. Magnification views ofthe left breast calcifications performed in addition to routine views. Breast parenchyma is heterogeneously dense, limiting mammographicsensitivity. No significant change in loosely grouped calcifications inthe upper outer left breast, some of which have benign milk of calciumappearance. No new suspicious mass, architectural distortion, orsuspicious calcifications. Impression: Stable probably benign left breast calcifications. Recommend follow-up in12 months with magnification views to bring follow-up over a 2-yearinterval. No new mammographic evidence of malignancy in either breast. BI-RADS 3-probably benign 5 year breast cancer risk assessment 1.9 % Lifetime breast cancer risk assessment 11.9 % Breast cancer risk category Low (<15%) Result [facility] Elizabeth Smith MD IMG BI PROCEDURES Final Resu lt * Hemoglobin A1c (03/22/2019) [facility] Hemoglobin A1C 6.4 <=6.5 % Blood Venous blood specimen / Unknown Result [facility] Provider LAB BLOOD ORDERABLES Junie l Result * Colonoscopy (07/06/2018) [facility] Colonoscopy Abstracted, No Interpretation Anatomical Region Laterality Modality Other Result [facility] Provider HEALTH MAINTENANCE Final Result * Annual BMP Blood Test (07/05/2018) [facility] Annual BMP Blood Test abstracted Result [facility] Provider HEALTH MAINTENANCE Final Result * Urine Albumin Creatinine Ratio (03/23/2018) [facility] Urine Albumin Creatinine Ratio abstracted Result [facility] Provider [facility] MAINTENANCE Final Result * Pap smear (03/09/2018) 03/09/2018 Narrative HISTORICAL TESTING LAB RESULTING AGENCY - 03/13/2018 2:28 PM EST [id number] THINPREP PAP, IMAGED: NEGATIVE FOR SQUAMOUS INTRAEPITHELIAL LESION AND MALIGNANCY . VICTORINA BURGER(ASCP) (CASE ELECTRONICALLY SIGNED 03 13 2018) RESULT OF APTIMA HIGH RISK HPV ASSAY: HIGH RISK HPV: ??NEGATIVE (SEROTYPES 16,18,31,33,35,39,45,51,52,56,58,59,66,68) COMPLETED ON 2018-03-13 ADEQUACY: SATISFACTORY ENDOCERVICAL/TRANSFORMATION ZONE COMPONENT PRESENT. SOURCE: THINPREP PAP HPV ANY DX: ??REFLEX 16 AND 18, CERVICAL, IMAGED CLINICAL INFORMATION: HPV ANY DIAGNOSIS. MENOPAUSE, PAP HX NEG, Z12.4 Danna Stephens MD LAB CYTOLOGY ORDERABLES Final Result HISTORICAL TESTING LAB RESULTING AGENCY * Hepatitis C Screening (09/21/2017) Hepatitis C Screening abstracted Historical Provider HEALTH MAINTENANCE Final Result * (ABNORMAL) Lipid panel (09/21/2017) LDL/HDL Ratio 5(A) 0 - 4 Triglycerides 449(A) 0 - 150 mg/dL Cholesterol 233(A) 0 - 200 mg/dL HDL 49 >=40 mg/dL LDL Cholesterol 95 0 - 100 mg/dL Blood Venous blood specimen / Unknown Historical Provider LAB BLOOD ORDERABLES Junie l Result from Last 3 Months or Most Recently Relevant to Health Maintenance Insurance [facility] [address] [place] [address] Care Teams Decorating Inspector Relationship Specialty Start Date End Date Santhosh Merrill DO [address] [place] [phone] PCP - General Internal Medicine 02/18/20
--- OUTSIDE RECORDS SUMMARY | 2024-03-18 10:29 | XMS_ITS ---
Author Organization [facility] Address [address] [address] Care Team Providers Care Managing Jeweler Name Role Phone Santhosh Merrill DO Primary Care Provider MATTEO Herr [phone] REASON FOR VISIT ATI referral Encounters Encounter Location Date Provider Diagnosis [facility] [address] [address] 02/23/2024 MATTEO MALDONADO Plan Of Treatment Next Appt Details Provider Name:MATTEO MALDONADO, 04/24/2024 03:30:00 PM, [address] [address], [place], [address], Progress Notes * NACHOMartin HaywoodOB:[birth year] (63 yo F)Acc No.[id number]:02/23/2024 Patient:?Verónica YEAGER :1960???Age:63 Y???Sex:Female Address:[address] [place] [address] [place] [address] * true * Date:? Generated for Printi ng/Farog/eTransmitting on:?03/18/2024 10:29 AM EST
--- OUTSIDE RECORDS SUMMARY | 2024-03-18 10:30 | XMS_ITS ---
Author Organization [facility] Address [address] [address] Care Team Providers Care Direct Selling Counselor Name Role Phone Santhosh Merrill DO Primary Care Provider MATTEO Herr [phone] REASON FOR VISIT ATI Plan Of Care Encounters Encounter Location Date Provider Diagnosis [facility] [address] [facility] [address] [place] [address] 03/08/2024 MATTEO MALDONADO Plan Of Treatment Next Appt Details Provider Name:MATTEO MALDONADO, 04/24/2024 03:30:00 PM, [address] [facility] [address], [place], [address], Progress Notes * SHOBHAMartin HaywoodOB:[birth year] (63 yo F)Acc No.[id number]:03/08/2024 Patient:?SHOBHAVerónica Haywood :1960???Age:63 Y???Sex:Female Address:[address] [place] [address] [place] [address] * true * Date:? Generated for Printi cecilia/Laine/eTransmitting on:?03/18/2024 10:29 AM EST
--- OUTSIDE RECORDS SUMMARY | 2024-03-18 10:30 | XMS_ITS | Patient Health Record ---
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 given Preop education: podiatry team members, night before and day of procedures, activity restrictions next 6 to 10 weeks, weight on foot restrictions, ice and elevation education, bandage care until sutures/pins removed, bathing restrictions/option s, pain control-narcotic and non-narcotic, prevention of constipation and DVT education. Postop visits: 3 days po: wound check 2 wk po: Suture removal 5 wk po: WB x-rays 06/16/2023 Partial tear of right Achilles tendon, sequela (ICD-10 - S86.011S) The right foot and leg has swelling and bruising normal for POD #4. She has no signs of infection on clinical exam today. She has no pain on examination today. I changed the right foot bandage, Telfa and a dry sterile dressing applied. The 4 inch posterior fiberglass splint was reapplied to the right foot and leg. She is to remain non weight-bearing to the right foot with either the walker or the knee scooter. We discussed icing and elevation of the right foot is important, especially until her next visit. We discussed using a cast bag for showering. She received the shower bench. Patient is to take the Tylenol as prescribed and the Tramadol as needed. She is taking the Eliquis to prevent blood clots. I will see her back in 10 days for a suture removal. 06/26/2023 Skin ulcer of toe of left foot with fat layer exposed (ICD-10 - L97.522) This is an outpatient visit for evaluation and management of a new problem, which required appropriate review of pertinent medical history, review of any previous imaging, review of all previous records, and examination and complex decision-making. Time was 30 minutes spent in review of all these facets including face to face discussion with the patient regarding my findings and in discussion of a current and future treatment plan. She has a new wound on the left 3rd toe, caused by trauma. There appears to be the start of cellulitis to the toe. We discussed the chronic swelling and deformity make the current open area difficult to heal. We discussed the importance of proper offloading for the wound to heal. I explained to the patient that until the left 3rd toe wound was healed, she should be keeping the wound covered daily. She should also not be getting her foot wet until the wound is healed. Continue to elevate the feet to help with the swelling. I took a wound culture of the left 3rd toe. I started the patient on Augmentin 500mg PO BID x 10 days. I may change based on the wound culture results. The patient tolerated the procedure well. The new wound measurements for the right foot were 0.4cm x 0.3cm. The area does not probe to bone, but I warned the patient that if it continues to deteriorate this could continue to the bone. Patient was instructed not to pick at the foot and only apply Iodosorb to the wound with a dry dressing only. The patient is to change the bandage daily. Pt to call or go to ER if the foot becomes painful red, they see pus, or the wound worsens. Patient to follow up in 2 weeks. 07/10/2023 Cellulitis of toe of left foot (ICD-10 - L03.032) The wounds of the right big toe and the left 3rd toe have healed. She still has some edema and erythema of the left 3rd toe. Her wound culture did grow pseudomonas, so I will send an antibiotic to cover that bacteria. RX Cipro 500mg PO BID x 7 days sent to the pharmacy. All risks and side effects discussed with the patient and her . 08/02/2023 Partial tear of right Achilles tendon, sequela (ICD-10 - S86.011S) The right foot and leg has swelling normal s/p 7 weeks. She has no signs of infection on clinical exam today. She has no pain on examination today. She is cleared to return to a regular shoe with an ASO lace up ankle brace. A small lace p ankle brace was fitted and dispensed to the patient in the office today. I recommended she start with a cane when ambulating. We discussed she should not be standing for more than 15-30 minutes at a time. We discussed icing and elevation of the right foot is important, especially until her next visit three times a day for 30 minutes. Patient is to take the Tylenol as prescribed. She can decorating and assembly supervisor the shower and is now cleared to go into a pool since all wounds are closed. I will send another note to physical therapy, [facility] in [place] stating the patient is cleared to start weight-bearing exercises, strengthening, and gait training. We discussed that with the tendon repair she may still have some mild curling of her toes and she will continue to have a pes planus deformity. I would like to see her back in 4 weeks. If she is doing well, my plan is to start to transition her out of the brace. 09/15/2023 Charcot arthropathy (ICD-10 - M14.60) This is an outpatient visit for evaluation and management of a new problem of an existing patient, which required appropriate review of pertinent medical history, review of any previous imaging, review of all previous records, and examination and complex decision-making. Time was 45 minutes spent in review of all these facets including face to face discussion with the patient regarding my findings and in discussion of a current and future treatment plan. I reviewed all the patient's records from [facility]. I explained that she has a significantly displaced fracture of her navicular with a dislocation of her talonavicular joint. I reviewed her x-ray images from [facility] and her CT scan. I have a high suspicion of a Charcot arthropathy secondary cause due to the severity of this injury. This suspicion is also increased due to her presentation of a red, hot, swollen limb in a diabetic with peripheral neuropathy without a significant trauma. I reviewed that she does have increased blood sugar and had a slightly elevated white count which furthers this suspicion. I discussed with the patient that I feel she does need surgical intervention for this injury, but she needs someone who has more trauma/charcot experience. I explained she may need internal/external fixation. My recommendation would be an urgent referral to [facility] to see Dr. Jono Diaz. I will place this urgent referral. In the meantime, I will contact physical therapy to cancel all upcoming appointments. I will send a prescription for Tramadol to her pharmacy to take for pain until her appointment with Dr. Diaz. I can renew her handicap placard. I did remove the posterior splint and applied a new one in the office today. She was given extra supplies in case it needs to be changed before the appointment with Dr. Diaz. She is to remain non weight-bearing until her appointment with Dr. Diaz. A rolling knee scooter dispensed to the patient in the office today, which she can rent until she is able to be weigh bearing again. She is in agreement with this plan. 09/15/2023 Closed displaced fracture of navicular bone of left foot, initial encounter (ICD-10 - S92.252A) 09/06/2023 Partial tear of right Achilles tendon, sequela (ICD-10 - S86.011S) The right foot and leg has swelling normal s/p 3 months. She has no signs of infection on clinical exam today. She has no pain on examination today. She is in a regular shoe with an ASO lace up ankle brace. She can transition to an ankle compression sleeve. We discussed she can start some low impact exercise related activity. We discussed icing and elevation of the right foot is important, especially until her next visit twp times a day for 30 minutes. Patient is to take the Tylenol as prescribed. She can decorating and assembly supervisor the shower and is now cleared to go into a pool since all wounds are closed. I will send another note to physical therapy, [facility] in [place] stating the patient is cleared to start gait training. We discussed that with the tendon repair she may still have some mild curling of her toes and she will continue to have a pes planus deformity. I would like to see her back in 4-6 weeks. If she is doing well, my plan is to start to transition her out of the brace. 10/20/2023 Tear of peroneal tendon, right, subsequent encounter (ICD-10 - S86.311D) 10/20/2023 Partial tear of right Achilles tendon, sequela (ICD-10 - S86.011S) The right foot and leg has swelling normal s/p 4 months also due to her right foot being her only weight-bearing surface. She has no signs of infection on clinical exam today. She has no pain on examination today. She is in a regular shoe with an ASO lace up ankle brace. Patient is to take the Tylenol as prescribed. She can decorating and assembly supervisor the shower. We discussed that with the tendon repair she may still have some mild curling of her toes and she will continue to have a pes planus deformity. For now due to the increased pressure to the right side, I recommend she continues with the ASO brace until she is able to weight bear on the left side. I also recommended stopping physical therapy until she is able to weight bear on the left side. We discussed while she is in the brace she will plateau on the strengthening for the right side. She is in agreement with this plan. 12/22/2023 Tear of peroneal tendon, right, subsequent encounter (ICD-10 - S86.311D) 12/22/2023 Partial tear of right Achilles tendon, sequela (ICD-10 - S86.011S) I spent over 45 minutes in a face to face discussion with the patient. The right foot and leg has swelling normal s/p 6 months also due to her right foot being her only weight-bearing surface. She has no signs of infection on clinical exam today. She has no pain on examination today. She is in a regular shoe with an ASO lace up ankle brace. Patient is to take the Tylenol as prescribed. She can decorating and assembly supervisor the shower. We discussed that with the tendon repair she may still have some mild curling of her toes and she will continue to have a pes planus deformity. For now due to the increased pressure to the right side, I recommend she continues with the ASO brace until she is able to weight bear on the left side. I also recommended stopping physical therapy until she is able to weight bear on the left side. We discussed while she is in the brace she will plateau on the strengthening for the right side. She is in agreement with this plan. 02/21/2024 Partial tear of right Achilles tendon, sequela (ICD-10 - S86.011S) I spent over 30 minutes in a face to face discussion with the patient. The right foot and leg has swelling normal s/p 8 months also due to her right foot being her only weight-bearing surface. She has no signs of infection on clinical exam today. She has no pain on examination today. She is in a regular shoe with an ASO lace up ankle brace. Patient is to take the Tylenol as prescribed. She can decorating and assembly supervisor the shower. We discussed that with the tendon repair she may still have some mild curling of her toes and she will continue to have a pes planus deformity. For now due to the increased pressure to the right side, I recommend she continues with the ASO brace until she is able to weight bear on the left side. I also recommended stopping physical therapy until she is able to weight bear on the left side. We discussed while she is in the brace she will plateau on the strengthening for the right side. We discussed if the lesser toe remains contracts, I can perform in office tenotomies if needed, but I would recommend waiting for now and see how the position improves once starting physical therapy again. She is in agreement with this plan. 02/21/2024 Tear of peroneal tendon, right, subsequent encounter (ICD-10 - S86.311D) 12/22/2023 Pain in right leg (ICD-10 - M79.604) 09/15/2023 Dislocation of left talus, initial encounter (ICD-10 - S93.05XA) 10/20/2023 Pain in right leg (ICD-10 - M79.604) 08/02/2023 Tear of peroneal tendon, right, subsequent encounter (ICD-10 - S86.311D) 09/06/2023 Tear of peroneal tendon, right, subsequent encounter (ICD-10 - S86.311D) 07/10/2023 Partial tear of right Achilles tendon, sequela (ICD-10 - S86.011S) The right foot and leg has swelling and bruising normal s/p 4 weeks. She has no signs of infection on clinical exam today. She has no pain on examination today. She can start weight-bearing to the right foot in the walking boot and a cane. I did not recommend any crutches. She can be weight-bearing as tolerated in the boot. We discussed she should not be standing for more than 15-30 minutes at a time. We discussed icing and elevation of the right foot is important, especially until her next visit three times a day for 30 minutes. Patient is to take the Tylenol as prescribed. She is taking the Eliquis to prevent blood clots. She can decorating and assembly supervisor the shower and use the justin wrap when ambulating in the walking boot. No soaking the foot. She can also start non weight-bearing calf pumps to help her ROM and DVT prevention. I am starting her with physical therapy, twice-weekly with non weight-bearing stretching and strengthening for the next 4 weeks. I will see her back in 3 weeks, if she is ambulating well in the boot, we can start to transition her back to a regular shoe and start weight-bearing exercises at physical therapy. She is in agreement with this plan. Referral placed to [facility] physical therapy in [place] per the patient's request. 06/26/2023 Cellulitis of toe of left foot (ICD-10 - L03.032) 06/05/2023 Skin ulcer of toe of right foot with fat layer exposed (ICD-10 - L97.512) She has no evidence of cortical destruction of the distal phalanx of the hallux. We discussed the bone edema seen on the MRI could have been from her hammer toe position creating pressure to the bone. I do not believe she has osteomyelitis of the toe. I did recommend that she complete the antibiotics for the full 4 weeks. Her wound does appear to be healing with her wound care, surgical shoe, and the antibiotics. We discussed the chronic swelling and deformity make the current open area difficult to heal. We discussed the importance of proper offloading for the wound to heal. I explained to the patient that until the right hallux wound was healed, she should be keeping the wound covered daily. She should also not be getting her foot wet until the wound is healed. Continue to elevate the feet to help with the swelling. I performed a full thickness debridement of the plantar wound of the right foot with a #15 blade; all non-viable tissue was excised, and the wound was debrided to a clean bleeding base. The patient tolerated the procedure well. The new wound measurements for the right foot were 0.4cm x 0.4cm. The area does not probe to bone, but I warned the patient that if it continues to deteriorate this could continue to the bone. Patient was instructed not to pick at the foot and only apply hydrogel to the wound with a dry dressing only. The patient is to change the bandage daily. Pt to call or go to ER if the foot becomes painful red, they see pus, or the wound worsens. Patient to follow up in 2 weeks. 06/16/2023 Tear of peroneal tendon, right, subsequent encounter (ICD-10 - S86.311D) 05/09/2023 Partial tear of right Achilles tendon, sequela (ICD-10 - S86.011S) She is scheduled for a surgical repair Jun 12 2023. 05/24/2023 Hammer toe of right foot (ICD-10 - M20.41) 05/09/2023 Tear of peroneal tendon, right, subsequent encounter (ICD-10 - S86.311D) 06/16/2023 Pain in right leg (ICD-10 - M79.604) 05/24/2023 Partial tear of right Achilles tendon, sequela (ICD-10 - S86.011S) She is scheduled for a surgical repair Jun 12 2023. 06/05/2023 Hammer toe of right foot (ICD-10 - M20.41) 07/10/2023 Tear of peroneal tendon, right, subsequent encounter (ICD-10 - S86.311D) 06/26/2023 Partial tear of right Achilles tendon, sequela (ICD-10 - S86.011S) The right foot and leg has swelling and bruising normal for POD #14. She has no signs of infection on clinical exam today. She has no pain on examination today. She is to remain non weight-bearing to the right foot with either the walker or the knee scooter. We discussed icing and elevation of the right foot is important, especially until her next visit three times a day for 30 minutes. Patient is to take the Tylenol as prescribed and the Tramadol as needed. She is taking the Eliquis to prevent blood clots. I removed her posterior splint to examine the surgical site. There does not appear to be any signs of infection. The incision sites were cleansed with a chlorhexidine wash. Using sterile forceps and a #15 blade, the sutures were removed. The patient tolerated this well and 1/4 inch steri strips were applied across the incision sites. Manuel compression splint was applied which she can remove as necessary to shower. Starting in 48 hours she can remove the Manuel compression splint and get the foot wet and shower normally. No soaking the foot. She can reapply the Manuel wrap after showering. She can also start non weight-bearing calf pumps to help her ROM and DVT prevention. She is to remain non weight-bearing to the right leg. Now that the suture are removed, I can transfer her into a tall walking boot. A large tall pneumatic compression walking boot was fitted and dispensed to the patient today. She will remain non weight-bearing for 4-6 weeks. Once she is able to bear weight on the right leg, I will recommend that she starts physical therapy. I will see her back in 2-3 weeks. 09/06/2023 Pain in right leg (ICD-10 - M79.604) 08/02/2023 Pain in right leg (ICD-10 - M79.604) 10/20/2023 Type 2 diabetes mellitus with diabetic polyneuropathy, without long-term current use of insulin (ICD-10 - E11.42) 09/15/2023 Pain in left foot (ICD-10 - M79.672) 12/22/2023 Charcot arthropathy (ICD-10 - M14.60) I reviewed the results of the left foot CT scan. We discussed loosening hardware of the plate. I also discussed that she is still healing across the fusion sites. I had a long discussion with the patient regarding the complications of Charcot surgery. We discussed it is common for hardware complications following Charcot reconstruction. Charcot foot surgery is often performed to stabilize and correct the deformities caused by Charcot neuroarthropathy, a condition associated with diabetes and peripheral neuropathy. However, surgical intervention carries specific complications: Infection due to diabetes and neuropathy, patients are at a higher risk for postoperative infections, including deep and superficial wound infections. Delayed Healing and impaired blood circulation and neuropathy can slow down wound and bone healing, potentially leading to nonunion. Amputation Risk in severe cases or when complications arise (e.g., uncontrollable infection or vascular compromise), partial or full amputation may be necessary. Hardware Failure-internal fixation devices like screws or plates may fail due to the poor bone quality in Charcot foot. Recurrence of Deformity-even after corrective surgery, deformities can recur due to the ongoing progression of Charcot neuroarthropathy. Osteomyelitis- bone infections can occur, especially if there are open wounds or ulcers before surgery. We also discussed this is likely the cause of the delayed wound healing. We discussed that she may need a revision to this procedure. I recommended she discuss this with her orthopedic surgeon to agree on next steps. In the meantime, I would like her to remain in the ASO of the right side. A new ASO dispensed to the patient today. We discussed once healed from the left sided surgery, x-ray evaluation of both feet every 6 months is recommended for the Charcot. 02/21/2024 Pain in right leg (ICD-10 - M79.604) 10/20/2023 Charcot arthropathy (ICD-10 - M14.60) We discussed once healed from the left sided surgery, x-ray evaluation of both feet every 6 months is recommended for the Charcot. 12/22/2023 Type 2 diabetes mellitus with diabetic polyneuropathy, without long-term current use of insulin (ICD-10 - E11.42) 02/21/2024 Charcot arthropathy (ICD-10 - M14.60) The revisional surgery appears to be healing well. We discussed loosening hardware of the plate that is now removed. I also discussed that she is still healing across the fusion sites. I had a long discussion with the patient regarding the complications of Charcot surgery. We discussed it is common for hardware complications following Charcot reconstruction. Charcot foot surgery is often performed to stabilize and correct the deformities caused by Charcot neuroarthropathy, a condition associated with diabetes and peripheral neuropathy. However, surgical intervention carries specific complications: Infection due to diabetes and neuropathy, patients are at a higher risk for postoperative infections, including deep and superficial wound infections. Delayed Healing and impaired blood circulation and neuropathy can slow down wound and bone healing, potentially leading to nonunion. Amputation Risk in severe cases or when complications arise (e.g., uncontrollable infection or vascular compromise), partial or full amputation may be necessary. Hardware Failure-internal fixation devices like screws or plates may fail due to the poor bone quality in Charcot foot. Recurrence of Deformity-even after corrective surgery, deformities can recur due to the ongoing progression of Charcot neuroarthropathy. Osteomyelitis- bone infections can occur, especially if there are open wounds or ulcers before surgery. We also discussed this is likely the cause of the delayed wound healing. We discussed that she may need a revision to this procedure. Once she is weight-bearing on the left side, we can start the x-ray screening for Charcot. We discussed once healed from the left sided surgery, x-ray evaluation of both feet every 6 months is recommended for the Charcot. Patient to follow up in 2 months. 08/02/2023 Type 2 diabetes mellitus with diabetic polyneuropathy, without long-term current use of insulin (ICD-10 - E11.42) 09/06/2023 Type 2 diabetes mellitus with diabetic polyneuropathy, without long-term current use of insulin (ICD-10 - E11.42) 07/10/2023 Pain in right leg (ICD-10 - M79.604) 06/16/2023 Skin ulcer of toe of right foot with fat layer exposed (ICD-10 - L97.512) She has no evidence of cortical destruction of the distal phalanx of the hallux. We discussed the bone edema seen on the MRI could have been from her hammer toe position creating pressure to the bone. I do not believe she has osteomyelitis of the toe. I did recommend that she complete the antibiotics for the full 4 weeks. Her wound does appear to be healing with her wound care, surgical shoe, and the antibiotics. We discussed the chronic swelling and deformity make the current open area difficult to heal. We discussed the importance of proper offloading for the wound to heal. I explained to the patient that until the right hallux wound was healed, she should be keeping the wound covered daily. She should also not be getting her foot wet until the wound is healed. Continue to elevate the feet to help with the swelling. I performed a full thickness debridement of the plantar wound of the right foot with a #15 blade; all non-viable tissue was excised, and the wound was debrided to a clean bleeding base. The patient tolerated the procedure well. The new wound measurements for the right foot were 0.2cm x 0.2cm. The area does not probe to bone, but I warned the patient that if it continues to deteriorate this could continue to the bone. Patient was instructed not to pick at the foot and only apply hydrogel to the wound with a dry dressing only. The patient is to change the bandage daily. Pt to call or go to ER if the foot becomes painful red, they see pus, or the wound worsens. Patient to follow up in 2 weeks. 06/26/2023 Tear of peroneal tendon, right, subsequent encounter (ICD-10 - S86.311D) 06/05/2023 Type 2 diabetes mellitus with diabetic polyneuropathy, without long-term current use of insulin (ICD-10 - E11.42) 05/24/2023 Tear of peroneal tendon, right, subsequent encounter (ICD-10 - S86.311D) 05/09/2023 Type 2 diabetes mellitus with diabetic polyneuropathy, without long-term current use of insulin (ICD-10 - E11.42) 05/24/2023 Type 2 diabetes mellitus with diabetic polyneuropathy, without long-term current use of insulin (ICD-10 - E11.42) 06/16/2023 Type 2 diabetes mellitus with diabetic polyneuropathy, without long-term current use of insulin (ICD-10 - E11.42) 06/26/2023 Pain in right leg (ICD-10 - M79.604) 07/10/2023 Type 2 diabetes mellitus with diabetic polyneuropathy, without long-term current use of insulin (ICD-10 - E11.42) 08/02/2023 Healed foot ulcer (ICD-10 - Z87.2) All wounds have healed without incident. She is cleared to go to her lead manufacturing engineering tech for toenail trimming. 10/20/2023 Healed foot ulcer (ICD-10 - Z87.2) All wounds have healed without incident. She is cleared to go to her lead manufacturing engineering tech for toenail trimming. 09/06/2023 Healed foot ulcer (ICD-10 - Z87.2) All wounds have healed without incident. She is cleared to go to her lead manufacturing engineering tech for toenail trimming. 02/21/2024 Type 2 diabetes mellitus with diabetic polyneuropathy, without long-term current use of insulin (ICD-10 - E11.42) 07/10/2023 Healed foot ulcer (ICD-10 - Z87.2) 06/26/2023 Type 2 diabetes mellitus with diabetic polyneuropathy, without long-term current use of insulin (ICD-10 - E11.42) 06/26/2023 Healed foot ulcer (ICD-10 - Z87.2) The right hallux ulcer is superficially healed. I recommended she continue to bandage the toe daily x 1 week and then she can stop. 06/26/2023 Other Plan Of Treatment Pending Test Test Name Order Date X ray : Ankle, right, 3 views 12/20/2022 Electrocardiogram (EKG) 01/17/2023 Electrocardiogram (EKG) 04/19/2023 Hemoglobin A1c 01/17/2023 Hemoglobin A1c 04/19/2023 Basic Metabolic Panel (8) 04/19/2023 Basic Metabolic Panel (8) 01/17/2023 CBC 01/17/2023 CBC 04/19/2023 X ray : Foot, right 3v 05/09/2023 Next Appt Details Provider Name:MATTEO COOMBS MALDONADO, 04/24/2024 03:30:00 PM, [address] [address], [place], [address], Insurance Providers Payer Name Payer Address Payer Phone Subscriber Number Group Number Insured Name Patient Relationship to Insured Coverage Start Date Coverage End Date [facility] [address] [place], [place] [phone] [id number] Verónica Yeager Self - patient is the insured Medical (General) History Medical History History ICD Code diabetes retinopathy- Dr. 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 Christensen choroidal nevus OD- Dr. Christensen bilateral cataracts L>R- Dr. 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
--- OUTSIDE RECORDS SUMMARY | 2024-03-18 10:30 | XMS_ITS | Clinical Summary ---
Author Organization [facility], Address [address] [place] [address] [place] [address] Phone Care Team Providers Care Pharmacy Student Name Role Phone Santhosh Merrill DO Primary Care Provider [phone] Allergies Active Allergy Reactions Criticality Noted Date Comments Metformin High 10/16/2017 Medications metoprolol succinate XL (TOPROL-XL) 25 MG 24 hr tablet Take 12.5 mg by mouth 03/13/2020 Active ticagrelor (Brilinta) 90 MG tablet TAKE 1 TABLET BY MOUTH TWICE DAILY 03/10/2020 Active spironolactone (ALDACTONE) 25 MG tablet Take 12.5 mg by mouth Active lisinopril (PRINIVIL,ZESTRI L) 2.5 MG tablet Take 2.5 mg by mouth 03/13/2020 Active atorvastatin (LIPITOR) 40 MG tablet Take 40 mg by mouth Active torsemide (DEMADEX) 20 MG tablet Take 20 mg by mouth Active Empagliflozin (Jardiance) 10 MG tablet Take 1 tablet by mouth 03/13/2020 Active Aspirin Adult Low Strength 81 MG EC tablet Take 81 mg by mouth 1 (one) time each day 04/08/2020 Active Active Problems Problem Noted Date Diagnosed Date Stage 3a chronic kidney disease 04/27/2020 Type 2 diabetes mellitus with diabetic nephropat hy 04/27/2020 Coronary arteriosclerosis 03/13/2020 Overview (04/27/2020): Last Assessment & Plan: History of atherosclerotic coronary disease. Patient remains on Brilinta and aspirin therapy. I told the patient that we could switch Brilinta to Plavix if the cost becomes an issue. We went over the fact that the remaining coronary tree is relatively free of disease. We will continue with risk factor modification Systolic heart failure 03/13/2020 Overview (04/27/2020): Last Assessment & Plan: Patient with systolic heart failure. We will schedule an echocardiogram in 2 months to reassess LV systolic function. Patient will continue on present medical therapy but is orthostatic I am decreasing her dose of metoprolol leaving her on full dose of of ERIKA inhibitor as tolerated. I went over the pathology that she has what our plans are for treatment. And the need to continue present medical therapy. Once her blood sugars are under control I have encouraged her to go back to cardiac rehab Hypertriglyceridemia 10/02/2017 Microalbuminuria 10/02/2017 Resolved Problems Problem Noted Date Diagnosed Date Resolved Date Type 2 diabetes mellitus 10/02/2017 Overview (04/27/2020): Follows with [facility] Immunizations Name Administration Dates Next Due Tdap 06/01/2018 Social History Tobacco Use Types Packs/Day Years Used Date Smoking Tobacco: Never Assessed Comments Unknown Sex and Gender Information Value Date Recorded Sex Assigned at Not on file Legal Sex Female 8:20 AM EDT Gender Identity Not on file Sexual Orientation Not on file Plan of Treatment Health Maintenance Due Date Last Done Comments Breast Cancer Screening 1960 Pneumococcal Vaccine: Pediat rics (0 to 5 Years) and At-Risk Patients (6 to 64 Years) (1 of 2 - PCV) 1968 Colorectal Cancer Screening: Annual FOBT 05/04/2011 Colorectal Cancer Screening: Colonoscopy 05/04/2011 Colorectal Cancer Screening: Sigmoidoscopy 05/04/2011 Diabetes: Hemoglobin A1C 04/27/2020 Diabetes: Ophthalmology Exam 04/27/2020 Diabetes: Pedal Pulse Checked 04/27/2020 Diabetes: Sensory Foot Exam 04/27/2020 Diabetes: Visual Foot Exam 04/27/2020 Influenza Vaccine (#1) 2023 Hepatitis B Vaccine Aged Out No longe r eligible based on patient's age to complete this topic Insurance [facility] Care Teams Pharmacy Student Relationship Specialty Start Date End Date Santhosh Merrill DO [address] [place] [address] PCP - General Internal Medicine 04/27/20
== END 2024-03-18 10:46 | disposition home or self-care (01) ==
PROVIDERS: Referring Provider Internal Medicine; Visit Provider Physician Assistant
DX: M79.641 Pain in right hand (principal); M79.642 Pain in left hand; R20.0 Anesthesia of skin
CPT/HCPCS: 99205